=== PATIENT | female | born 1995 | race Caucasian/White ===

== ENCOUNTER 2016-10-19 13:43 | Emergency (ER) | payer BC ==
[2016-10-19 14:04] VITALS: BP 107/78
--- NOTE | 2016-10-19 14:18 | UC ---
Throat Pain/Nasal Aaron HPI - HPI Summary HPI Summary: 21 year old female with complaints of sore throat x 5 -6 days. States her boyfriend has been ill for at least 2 weeks with similar symptoms. Denies fever. Feeling headaches, mild nausea and body aches. Vomiting x 1 day at the onset her illness and has resolved. Denies rash - History of Current Complaint Chief Complaint: UC Stated Complaint: SORE THROAT Time Seen by Provider: 10/19/16 14:05 Hx Obtained From: Patient Hx Last Menstrual Period: 10/07/16 Onset/Duration: Gradual Onset, Lasting Days - 5-6, Still Present Severity: Mild - declines ibuprofen Cough: None Associated Signs & Symptoms: Positive: Dysphagia, Vomiting - resolved. Negative : FB Sensation, Wheezing, Hoarseness, Sinus Discomfort, Nasal Discharge, Fever, Rash - Epiglottits Risk Factors Epiglottis Risk Factors: Negative - Allergies/Home Medications Allergies/Adverse Reactions: Allergies Allergy/AdvReac Type Severity Reaction Status Date / Time No Known Allergies Allergy Verified 10/19/16 13:59 PMH/Surg Hx/FS Hx/Imm Hx Previously Healthy: Yes Endocrine History Of: Denies: Diabetes, Thyroid Disease Cardiovascular History Of: Denies: Cardiac Disorders, Hypertension Respiratory History Of: Denies: COPD, Asthma GI/ History Of: Denies: Ulcer - Surgical History Surgical History: Yes Surgery Procedure, Year, and Place: cysts removed, near eyes and arm. Tonsillectomy age 8 - Family History Known Family History: Positive: None, Other - no FHx of cancer, both parents alive and well Negative: Hypertension, Diabetes - Social History Occupation: Student Lives: With Family Alcohol Use: None Substance Use Type: None Smoking Status (MU): Never Smoked Tobacco Have You Smoked in the Last Year: No - Immunization History Most Recent Influenza Vaccination: 2011 Review of Systems Constitutional: Fatigue - mild Skin: Negative Eyes: Negative ENT: Sore Throat Respiratory: Negative Cardiovascular: Negative Gastrointestinal: Vomiting - resolved Genitourinary: Negative Motor: Negative Neurovascular: Negative Musculoskeletal: Negative Neurological: Headache Psychological: Negative All Other Systems Reviewed And Are Negative: Yes Physical Exam Triage Information Reviewed: Yes Appearance: No Pain Distress, Well-Nourished, Ill-Appearing - mildly Vital Signs: Initial Vital Signs Temp 98.4 F 10/19/16 14:00 Pulse 92 10/19/16 14:00 Resp 16 10/19/16 14:00 BP 107/78 10/19/16 14:00 Pulse Ox 98 10/19/16 14:00 Vital Signs Reviewed: Yes Eyes: Positive: Conjunctiva Clear. Negative: Discharge ENT: Positive: Pharyngeal erythema, TMs normal. Negative: Nasal congestion, Nasal drainage, Tonsillar swelling - absent Neck: Positive: Supple, Nontender, Enlarged Nodes @ - bilatera ac Shotty left PC Respiratory: Positive: Lungs clear, Normal breath sounds Cardiovascular: Positive: RRR, No Murmur Abdomen Description: Positive: Nontender, No Organomegaly, Soft. Negative: CVA Tenderness (R), CVA Tenderness (L), Distended, Guarding Musculoskeletal: Positive: Strength Intact, ROM Intact Neurological: Positive: Alert, Muscle Tone Normal Psychological: Positive: Age Appropriate Behavior - pleasant and cooperative Skin: Negative: rashes, breakdown Throat Pain/Nasal Course/Dx - Course Course Of Treatment: Rapid strep - negative. [place] and CBC - pending - Differential Dx/Diagnosis Differential Diagnosis/HQI/PQRI: Pharyngitis, URI Provider Diagnoses: Upper Respiratory Infection. R/O mono Discharge - Discharge Plan Condition: Stable Disposition: HOME Patient Education Materials: Upper Respiratory Infection (ED), Mononucleosis ( ED) Referrals: No Primary Care Phys,NOPCP [Primary Care Provider] - [facility] [Outside] Additional Instructions: Take Tylenol 650mg - 1000 mg every 6 - 8 hours as needed for pain or fever Take Ibuprofen 600mg every 6 hour as needed for pain or fever
[2016-10-20 11:03] LABS: Hematocrit 43 % (35-47); Hemoglobin 14.7 g/dl (12.0-16.0); Mean Corpuscular HGB Conc 34 g/dl (31-36); Mean Corpuscular Hemoglobin 33 pg (27-31); Mean Corpuscular Volume 97 fL (80-97); Mean Platelet Volume 8 um3 (7.4-10.4); Red Blood Count 4.48 10^6/ul (4.0-5.4); Red Cell Distribution Width 13 % (10.5-15); White Blood Count 7.5 10^3/ul (3.5-10.8)
[2016-10-20 11:09] LABS: Mono Internal Control QC Line Present
== END 2016-10-19 15:07 | disposition home or self-care (01) ==
LOC: UCEAST 13:43
DX: J06.9 Acute upper respiratory infection, unspecified (principal)
CPT/HCPCS: 36415; 85025; 86308; 87651; 99211; G0463

== ENCOUNTER 2017-07-28 17:28 | Emergency (ER) | payer BC ==
[2017-07-28 17:37] VITALS: BP 120/60
--- NOTE | 2017-07-28 17:41 | UC ---
Knee Pain HPI - HPI Summary HPI Summary: 22 YEAR OLD FEMALE PRESENTS WITH COMPLAINS OF RIGHT KNEE AFTER TWISTING IT CLIMBING IT UP THE STAIRS. - History of Current Complaint Chief Complaint: UCLowerExtremity Stated Complaint: KNEE INJURY Time Seen by Provider: 07/28/17 17:40 Hx Obtained From: Patient Hx Last Menstrual Period: 07/27/17 Onset/Duration: Sudden Onset Severity Initially: Moderate Severity Currently: Moderate Pain Scale Used: 0-10 Numeric - 5 Character: Sharp Aggravating Factor(s): Movement Alleviating Factor(s): Rest Associated Signs And Symptoms: Positive: Swelling - Allergies/Home Medications Allergies/Adverse Reactions: Allergies Allergy/AdvReac Type Severity Reaction Status Date / Time No Known Allergies Allergy Verified 07/28/17 17:37 Home Medications: Home Medications Naproxen Sodium [Naproxen Sodium 220 mg] 440 mg PO BID PRN 07/28/17 [History Confirmed 07/28/17] PMH/Surg Hx/FS Hx/Imm Hx Previously Healthy: Yes - Surgical History Surgical History: Yes Surgery Procedure, Year, and Place: cysts removed, near eyes and arm. Tonsillectomy age 8 - Family History Known Family History: Positive: None, Other - no FHx of cancer, both parents alive and well Negative: Hypertension, Diabetes - Social History Alcohol Use: Rare Substance Use Type: None Smoking Status (MU): Never Smoked Tobacco Have You Smoked in the Last Year: No - Immunization History Most Recent Influenza Vaccination: 2011 Review of Systems Constitutional: Negative Skin: Negative Eyes: Negative ENT: Negative Respiratory: Negative Cardiovascular: Negative Gastrointestinal: Negative Genitourinary: Negative Motor: Negative Neurovascular: Negative Musculoskeletal: Other: - RIGHT KNEE PAIN Neurological: Negative Psychological: Negative All Other Systems Reviewed And Are Negative: Yes Physical Exam Triage Information Reviewed: Yes Vital Signs: Initial Vital Signs Temp 37.1 C 07/28/17 17:33 Pulse 76 07/28/17 17:33 Resp 16 07/28/17 17:33 BP 120/60 07/28/17 17:33 Pulse Ox 99 07/28/17 17:33 Vital Signs Reviewed: Yes Eye Exam: Normal ENT Exam: Normal Dental Exam: Normal Neck exam: Normal Neck: Positive: 1 Respiratory Exam: Normal Cardiovascular Exam: Normal Abdominal Exam: Normal Musculoskeletal: Positive: Other: - RIGHT KNEE PAIN (+) Neurological Exam: Normal Psychological Exam: Normal Skin Exam: Normal Knee Pain Course/Dx - Differential Dx/Diagnosis Provider Diagnoses: RIGHT KNEE PAIN/SWELLING Discharge - Discharge Plan Condition: Stable Disposition: HOME Prescriptions: Ibuprofen TAB* [Motrin TAB* 800 MG] 800 mg PO Q6H #30 tab Patient Education Materials: Knee Pain (ED) Forms: *Work Release Referrals: Minerva Choudhary NP [Primary Care Provider] - Chicho Chinchilla MD [Medical Doctor] -
--- NOTE | 2017-07-28 18:11 | RAD ---
INDICATION: Right knee pain COMPARISON: None TECHNIQUE: AP, lateral, tunnel, and sunrise views were obtained. FINDINGS: The bony structures, joint spaces, and soft tissues are normal for age. IMPRESSION: NEGATIVE EXAMINATION.
== END 2017-07-28 18:27 | disposition home or self-care (01) ==
LOC: UCEAST 17:28
DX: M25.461 Effusion, right knee (principal); M25.561 Pain in right knee
CPT/HCPCS: 99212; G0463